=== PATIENT | male | born 1995 | race Caucasian/White ===

== ENCOUNTER → 2018-03-07 13:19 | Emergency (ER) | payer BC ==
[~2018-03-07 13:19] MED LIST: Ibuprofen TAB* 400 MG PO ONE
--- NOTE | 2018-03-07 15:24 | RAD ---
INDICATION: Right testicular pain. COMPARISON: There are no relevant prior studies available for comparison. TECHNIQUE: Multiple real-time images of the testicles were obtained including color Doppler images and Doppler tracings. FINDINGS: The testicles are normal in size, shape and echogenicity. The right testicle measured 4.2 x 1.9 x 2.5 cm and the left testicle measured 4.1 x 2.1 x 2.4 cm. No intratesticular mass is seen. There is symmetric vascular flow within both testicles. The epididymides appear to be within normal limits. IMPRESSION: NO EVIDENCE FOR TESTICULAR TORSION OR EPIDIDYMITIS.
[2018-03-07 16:18] LABS: Urine Appearance Clear; Urine Blood Negative (Negative); Urine Color Yellow; Urine Ketones Negative (Negative); Urine Protein Negative (Negative); Urine Specific Gravity 1.021 (1.010-1.030); Urine Urobilinogen Negative (Negative)
--- NOTE | 2018-03-07 17:01 | ED ---
GI/ HPI - HPI Summary HPI Summary: Patient is a 22 y/o M w/ c/o left testicular pain onsetting 3 days ago. He notes that the pain sometimes radiates to his groin. He also reports numbness/ tingling radiating down his left leg. Pain is described as a pinching sensation and patient notes left testicular area is somewhat tender. He denies recent trauma and sex, dysuria, hematuria, N/V, abdominal pain, and penile discharge. In the room, he rates pain 4/10. He denies smoking. FMHx of multiple cancers. On triage, it is noted that walking or sitting with his legs closed aggravates Sx, nothing is noted to alleviate Sx. - History of Current Complaint Chief Complaint: EDUrogenitalProblems Time Seen by Provider: 03/07/18 15:44 Stated Complaint: PAIN IN GROIN Hx Obtained From: Patient Onset/Duration: Started Days Ago - 3 days ago, Atraumatic, Still Present Timing: Constant, Lasting Days - 3 days Current Severity: Moderate - in room 4/10 Pain Intensity: 4 Additional Locations for Males: Testicles - left Pain Characteristics: Other: - pinching Associated Signs and Symptoms: Negative: Nausea, Vomiting, Hematuria, Dysuria, Abdominal Pain Additional Signs & Symptoms: Negative: Penile Discharge Aggravating Factor(s): Sitting - with legs closed, Walking/Exertion Alleviating Factor(s): Nothing - Allergy/Home Medications Allergies/Adverse Reactions: Allergies Allergy/AdvReac Type Severity Reaction Status Date / Time Sulfa (Sulfonamide Allergy Unknown Unknown Verified 03/07/18 15:52 Antibiotics) Reaction Details PMH/Surg Hx/FS Hx/Imm Hx Sensory History: Denies: Hx Legally Blind, Hx Deafness Opthamlomology History: Denies: Hx Legally Blind EENT History: Denies: Hx Deafness Infectious Disease History: No Infectious Disease History: Denies: Traveled Outside the [place] in Last 30 Days - Family History Known Family History: Positive: Other - multiple Dai - Social History Alcohol Use: None Substance Use Type: Reports: None Smoking Status (MU): Never Smoked Tobacco Review of Systems Negative: Abdominal Pain, Vomiting, Nausea Positive: other - POSITIVE: left testicle pain with occasional radiation to the groin NEGATIVE: recent sex or trauma . Negative: dysuria, discharge, hematuria Neurological: Other - occasional tingling/numbness of LLE All Other Systems Reviewed And Are Negative: Yes Physical Exam - Summary Physical Exam Summary: Appearance: Well appearing, no pain distress Skin: warm, dry, reflects adequate perfusion Head/face: normal Eyes: EOMI, TSEFFANY ENT: normal Neck: supple, non-tender Respiratory: CTA, breath sounds present Cardiovascular: RRR, pulses symmetrical Abdomen: non-tender, soft Bowel Sounds: present Musculoskeletal: normal, strength/ROM intact Neuro: normal, sensory motor intact, A&Ox3 Genitourinary: testicular lie is normal, no blue dot sign, no mass. Normal cremasteric reflex, no testicular tenderness. Minor tenderness at epididymal head. Triage Information Reviewed: Yes Vital Signs On Initial Exam: Initial Vitals Temp Pulse Resp BP Pulse Ox 98.0 F 87 16 120/83 98 03/07/18 13:34 03/07/18 13:34 03/07/18 13:34 03/07/18 13:34 03/07/18 13:34 Vital Signs Reviewed: Yes Diagnostics - Vital Signs Vital Signs Temp Pulse Resp BP Pulse Ox 03/07/18 15:15 98.3 F 84 18 121/66 100 03/07/18 13:34 98.0 F 87 16 120/83 98 - Laboratory Lab Results: Lab Results 03/07/18 Range/Units 15:58 Urine Color Yellow Urine Appearance Clear Urine pH 5.0 (5-9) Ur Specific [place] 1.021 (1.010-1.030) Urine Protein Negative (Negative) Urine Ketones Negative (Negative) Urine Blood Negative (Negative) Urine Nitrate Negative (Negative) Urine Bilirubin Negative (Negative) Urine Urobilinogen Negative (Negative) Ur Leukocyte Esterase Negative (Negative) Urine Glucose Negative (Negative) Lab Statement: Any lab studies that have been ordered have been reviewed, and results considered in the medical decision making process. - Ultrasound No standard instances Ultrasound Interpretation: No Acute Changes Ultrasound Interpretation Completed By: Radiologist - testicular US impression: no evidence for testicular torsion or epididymitis; this report was reviewed by ED physician. Re-Evaluation - Re-Evaluation First Eval Re-Evaluation Time: 15:55 Comment: Discussed results of labs and tests with patient. He will be discharged to home and was given instructions. He understands and is agreeable with plan. GIGU Course/Dx - Course Course Of Treatment: Mild epididymal tenderness in a nonsexually active college- age male. No blue dot sign or evidence of torsion on ultrasound. Possibly viral. Short course of Cipro and Tylenol for discomfort. No hernia. Urine clean. - Diagnoses Differential Diagnoses - Male: Other - Epididymitis, torsion of the appendix testy, testicular torsion, orchitis Provider Diagnoses: Left testicular pain Discharge - Sign-Out/Discharge Documenting (check all that apply): Patient Departure - discharge - Discharge Plan Condition: Improved Disposition: HOME Prescriptions: Ciprofloxacin TAB* [Cipro 500 MG TAB*] 500 mg PO BID #10 tab Patient Education Materials: Testicle Pain (ED) Referrals: [facility] [Provider Group] Additional Instructions: Ice to the area. Wear tight fitting undergarments. Return with fever, increased pain, difficulty urinating, worse, new symptoms or other concerns. Follow-up with [facility] on Friday. Tylenol or ibuprofen as needed for tenderness. - Billing Disposition and Condition Condition: IMPROVED Disposition: Home - Attestation Statements Document Initiated by Scribe: Yes Documenting Scribe: Dwayne Gtz Provider For Whom Scribe is Documenting (Include Credential): Sam Isidro MD Scribe Attestation: IDwayne, scribed for Sam Isidro MD on 03/07/18 at 1851. Scribe Documentation Reviewed: Yes Provider Attestation: The documentation as recorded by the Dwayne carson accurately reflects the service I personally performed and the decisions made by me, Sam Isidro MD
[2018-03-07 17:10] VITALS: BP 109/60
== END | disposition home or self-care (01) ==
LOC: EDBD → ED 13:19
DX: N50.812 Left testicular pain (principal)
CPT/HCPCS: 76870; 81003; 87491; 87591; A9270-GY